=== PATIENT | male | born 1975 | race Asian ===

== ENCOUNTER 2020-01-27 12:54 | Emergency (ER) | payer BC ==
[~2020-01-27] VITALS: Ht 162.6 cm; Wt 77.1 kg
[2020-01-27] MEDS ORDERED: TETANUS/DIPHTHERIA TOX ADULT 0.5 ML SYR IM ONE (13:30)
--- NOTE | 2020-01-27 14:12 | Diagnostic Imaging Report ---
TECHNIQUE: 3 views of the left hand HISTORY: ^FOREIGN BODY PALMAR SURFACE 5 CM PIECE OF WOOD ^[id number] ^[id number]. COMPARISON: None. IMPRESSION: No radiopaque foreign body. Radiographs are not sensitive for the detection of nonradiopaque foreign bodies. No acute displaced fracture or dislocation. Joint spaces are within normal limits. Soft tissues are grossly unremarkable. Signed by: Walt Wood MD on 01/27/2020 2:08 PM
[2020-01-27] MEDS ORDERED: HYDROCODONE/APAP 5MG-325MG TAB PO ONE (14:15)
--- NOTE | 2020-01-27 14:16 | Emergency Department Note ---
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 Any updates have been documented here. Past Medical History Recent Fever: No Clinical Suspicion of Infectio: No New/Unexplained Change in Ment: No Past Medical History: None Other Surgery: NASAL SURGERY Social History Smoking Cessation: Current every day smoker Counseling Performed: Yes Alcohol Use: Daily Any Illegal Drug Use: No TB Exposure/Symptoms: No Physically hurt or threatened: No Other Last Tetanus: OUT OF DATE Any Pre-Existing Lines (PICC,: No Is patient up to date on immun: Yes Last Flu: NONE Last Pneumovax: NONE Review of Systems Review of Systems Constitutional: Reports no symptoms EENTM: Reports no symptoms Cardiovascular: Reports no symptoms Respiratory: Reports no symptoms Gastrointestinal: Reports no symptoms Genitourinary: Reports no symptoms Musculoskeletal: Reports as per HPI Integumentary: Reports no symptoms Neurological: Reports no symptoms Psychological: Reports no symptoms Endocrine: Reports no symptoms Hematological/Lymphatic: Reports no symptoms Physical Exam Related Data Allergies: Coded Allergies: No Known Allergies (Unverified , 01/27/20) Triage Vital Signs Vital Signs Date Time Temp Pulse Resp B/P (MAP) Pulse Ox O2 Delivery O2 Flow Rate FiO2 01/27/20 13:15 97.6 60 18 175/96 98 Vital signs reviewed: Yes Physical Exam CONSTITUTIONAL Constitutional: Present well-developed, Present well-nourished HENT HENT: Present normocephalic, Present atraumatic, Present oropharynx clear/moist, Present nose normal HENT L/R: Present left ext ear normal, Present right ext ear normal EYES Eyes: Reports PERRL, Reports conjunctivae normal NECK Neck: Present ROM normal PULMONARY Pulmonary: Present effort normal, Present breath sounds normal CARDIOVASCULAR Cardiovascular: Present regular rhythm, Present heart sounds normal, Present c apillary refill normal, Present normal rate GASTROINTESTINAL Abdominal: Present soft, Present nontender, Present bowel sounds normal GENITOURINARY Genitourinary: Present exam deferred SKIN Skin: Present warm, Present dry MUSCULOSKELETAL Musculoskeletal: Present ROM normal, Present other (SMALL PUNCTURE SITE AT PALMAR SURFACE JUST PROX TO 5TH MCP AREA AND I CAN FEEL LONG ~5-6CM FOREIGN BODY UNDER SKIN EXTENDING TO BASE OF PALMAR LONG FINGER, N/V INTACT, FROM ALL DIGITS, GOOD CAP REFILL) NEUROLOGICAL Neurological: Present alert, Present oriented x 3, Present no gross motor or sensory deficits PSYCHOLOGICAL Psychological: Present mood/affect normal, Present judgement normal Results Imaging Imaging results reviewed: Yes Impressions Procedure: [id number] DX/HAND 3+ VIEWS LEFT Exam Date: 01/27/20 Exam Time: 1330 REPORT STATUS: Signed TECHNIQUE: 3 views of the left hand HISTORY: ^FOREIGN BODY PALMAR SURFACE 5 CM PIECE OF WOOD ^[id number] ^[id number]. COMPARISON: None. IMPRESSION: No radiopaque foreign body. Radiographs are not sensitive for the detection of nonradiopaque foreign bodies. No acute displaced fracture or dislocation. Joint spaces are within normal limits. Soft tissues are grossly unremarkable. Signed by: Walt Wood MD on 01/27/2020 2:08 PM Dictated By: WALT WOOD DO 07 Transcribed By: ASHA on 01/27/208 Assessment & Plan Medical Decision Making MDM CHECK XRAY R/O METALLIC FB Reassessment Reassessment I SPOKE WITH DR LOUIS - WILL SEE PT 1ST TOMORROW AM IN CLINIC. THE PT'S SISTER WAS NOT HAPPY WITH THIS AND IS TALLKING ABOUT TAKING HIM TO ANOTHER ER - SO I SPOKE WITH DR ALBARADO (ORTHO) WHO WILL SEE PT IN CLINIC TODAY/NOW Assessment & Plan Final Impression: (1) Foreign body of hand, left Depart Disposition: HOME, SELF-CARE Last Vital Signs Date Time Temp Pulse Resp B/P (MAP) Pulse Ox O2 Delivery O2 Flow Rate FiO2 01/27/20 13:15 97.6 60 18 175/96 98 Medications in the ED Tetanus/ Diphtheria Toxoids 0.5 ml ONCE ONCE IM Last administered on 01/27/20at 13:44; Admin Dose 0.5 ML; Start 01/27/20 at 13:30; Stop 01/27/20 at 13:31; Status DC Acetaminophen/ Hydrocodone Bitart 1 ea ONCE ONCE PO ; Start 01/27/20 at 14:15; Stop 01/27/20 at 14:16; Status JARAD BONNER MD Jan 27, 2020 14:16
--- NOTE | 2020-01-27 14:34 | NUR ---
DR. MERCER HAS GIVEN PATIENT MULTIPLE OPTIONS. HE CAN GO TO DR. LOUIS IN THE MORNING OR TO [facility] TO SEE DR. ALBARADO RIGHT NOW PRIOR TO CLOSING. THEY CHOSE TO SEE DR. ALBARADO
== END 2020-01-27 14:36 | disposition home or self-care (01) ==
LOC: ER 13:00 → EDBD 13:00 → ER 14:36
DX: S61.422A Laceration with foreign body of left hand, initial encounter (principal); W26.8XXA Contact with other sharp object(s), not elsewhere classified, initial encounter
CPT/HCPCS: 90471; 90714; 99282

== ENCOUNTER → 2020-03-10 | Day surgery (SDC) | payer OTHER ==
[~2020-03-10] MED LIST: AUGMENTIN 500-1 EACH PO; CLARITIN-D 241 EACH PO; CREON DR 3,0001 EACH PO; HYOSCYAMINE 0.125 MG TAB ONE; LIDOCAINE HCL 2% LOCAL INJ 5 ML SDV VIAL INJ ONE; PANTOPRAZOLE SO40 MG PO; PROPOFOL IV EMULSION 10 MG/ML 20 ML VIAL ONE; SUCRALFATE1 GM PO; TAGAMET HB200 MG PO; ZOFRAN4 MG PO
[2020-03-10 10:45] VITALS: BP 130/76
--- NOTE | 2020-03-10 13:03 | Operative Report ---
DATE OF PROCEDURE: 03/10/2020 SURGEON: Darnell Silva MD PROCEDURE: EGD with biopsies and colonoscopy with biopsies. INDICATIONS FOR EGD: Upper abdominal pain, heartburn indigestion. INDICATIONS FOR COLONOSCOPY: History of bright red blood per rectum, occult blood in stools. MEDICATIONS: The patient was done under MAC, please see anesthesiologist's note. PROCEDURE IN DETAIL: With the patient in left lateral decubitus position, a flexible fiberoptic Olympus gastroscope was introduced into the esophagus under direct visualization without any difficulty. There was some patchy erythema noted in distal esophagus. The scope was then advanced with ease into the stomach and mucosa overlying the antrum and the body revealed some patchy intense erythema, low-grade to moderate edema, and biopsies were obtained. Pylorus was of normal contour and shape, it was intubated with ease and the scope was advanced all the way to the second portion of the duodenum. Biopsies were obtained from the proximal second portion and duodenal bulb to rule out sprue. The scope was then withdrawn back into the stomach and retroflexed, mucosa overlying the fundus and cardia appeared to be within normal limits. The scope was then straightened out, it was subsequently withdrawn. The patient tolerated the procedure well. IMPRESSION: 1. Distal esophagitis, mild. 2. Gastritis, biopsies obtained. 3. Rule out sprue. PLAN: 1. Follow up histology. 2. Increase Protonix to 40 mg one p.o. a.c. b.i.d. DESCRIPTION OF PROCEDURE: The patient was then turned around after adequate lubrication of the anal canal, a flexible fiberoptic Olympus colonoscope was inserted into the rectum with ease and advanced all the way to the cecum. It was then withdrawn slowly, mucosa overlying the cecum, ascending colon, transverse colon appeared to be within normal limits. Mild patchy inflammatory changes were noted in the left colon and the rectum, and random biopsies were obtained. The scope was then retroflexed into the distal rectum and small internal hemorrhoids were noted, none of which was actively bleeding. The scope was then straightened out, it was subsequently withdrawn. The patient tolerated the procedure well. IMPRESSION: 1. Mild patchy inflammatory changes, left colon, biopsies obtained. 2. Proctitis, mild. 3. Internal hemorrhoids, none actively bleeding. PLAN: 1. Followup histology. 2. Initiate VSL #3 one p.o. b.i.d. 3. Benefiber two tablespoonfuls and a glass of water once daily, hydrocortisone suppositories 25 mg b.i.d. x10 days then p.r.n. MD SUNNY Mcdonald/JACKIE /[id number] cc: DR. JAYME RAIN
== END | disposition home or self-care (01) ==
LOC: OR 08:48
PROVIDERS: ATTEND Internal Medicine Gastroenterology
DX: R19.5 Other fecal abnormalities (principal); K29.50 Unspecified chronic gastritis without bleeding; K21.9 Gastro-esophageal reflux disease without esophagitis; K20.9 Esophagitis, unspecified; K62.89 Other specified diseases of anus and rectum; K63.89 Other specified diseases of intestine; K64.8 Other hemorrhoids; A04.8 Other specified bacterial intestinal infections; F17.210 Nicotine dependence, cigarettes, uncomplicated; Z01.810 Encounter for preprocedural cardiovascular examination; Z01.812 Encounter for preprocedural laboratory examination; Z11.59 Encounter for screening for other viral diseases
CPT/HCPCS: 43239; 45380; 93005; J2001; U0002